=== PATIENT | female | born 1950 | race Caucasian/White ===

== ENCOUNTER → 2017-03-28 | Outpatient (CLI) | payer BC ==
[~2017-03-28] MED LIST: CALC-214 PO; IBUP-103 PO; MULT-506 PO; OMEGCAP2 PO; POLYSOL4 OP; RIZA10TA18 PO
--- NOTE | 2017-03-29 13:52 | MAMMOGRAPHY REPORT ---
BILATERAL DIGITAL SCREENING MAMMOGRAM TOMOSYNTHESIS WITH CAD: 03/28/2017 CLINICAL HISTORY: Routine screening. Patient has no complaints. TECHNIQUE: Breast tomosynthesis in addition to standard 2D mammography was performed. Current study was also evaluated with a Computer Aided Detection (CAD) system. COMPARISON: Comparison is made to exams dated: 03/27/2016 mammogram, 03/24/2015 mammogram, 04/30/2012 m ammogram, 04/25/2011 mammogram, 04/18/2010 mammogram, and 04/12/2009 mammogram - [facility]. BREAST COMPOSITION: The tissue of both breasts is heterogeneously dense, which may obscure small mas ses. FINDINGS: There is a newly visualized partially circumscribed and lobulated 12 mm mass in the approx imate 8:00 posterior right breast, for which additional targeted ultrasound and possible additional m ammographic views are recommended. 2 nodular asymmetries in the lateral right breast posteriorly, wi thin the retroglandular fat appears stable dating back to at least 2011, therefore most likely benign . There are other scattered benign coarse and vascular calcifications bilaterally. No other suspicious mass, architectural distortion or cluster of suspicious microcalcifications is seen. IMPRESSION: ACR BI-RADS CATEGORY 0: INCOMPLETE EVALUATION: NEED ADDITIONAL IMAGING EVALUATION The newly visualized, partially circumscribed and lobulated 12 mm mass in the lower outer posterior r ight breast needs additional evaluation. The patient will be called to schedule an appointment. Approximately 10% of breast cancers are not detected with mammography. A negative mammographic report should not delay biopsy if a clinically suggestive mass is present. Nadeen Finney M.D. ay/:03/28/2017 16:06:14 Flue Cleaner: Nuria NIXON(R)(M), [facility] letter sent: Addl Imaging 0 BI-RADS Code: ACR BI-RADS Category 0: Incomplete Evaluation: Need Additional Imaging Evaluation
== END ==
LOC: C.MAMM 07:56
PROVIDERS: ATTEND Physician Assistant
DX: Z12.31 Encounter for screening mammogram for malignant neoplasm of breast (principal)

== ENCOUNTER → 2017-04-06 | Outpatient (CLI) | payer BC ==
--- NOTE | 2017-04-06 14:13 | MAMMOGRAPHY REPORT ---
ULTRASOUND OF RIGHT BREAST: 04/06/2017 CLINICAL HISTORY: Callback from screening mammogram for right breast mass. COMPARISON: Comparison is made to exams dated: 03/28/2017 mammogram, 03/27/2016 mammogram, 03/24/2015 m ammogram, 04/30/2012 mammogram, 04/25/2011 mammogram, and 04/18/2010 mammogram - [facility]. TECHNIQUE: Real-time targeted ultrasound of the right breast was performed. FINDINGS: Real-time, high-resolution targeted ultrasound was performed of the right breast in the re gion of the 12 mm mammographic mass seen on the recent screening mammogram. In the right breast at 8 :00, 5 cm from the nipple, there is a lobulated hypoechoic solid-appearing 9 x 12 x 6 mm mass. This corresponds with the new mammographic mass and is indeterminant. Recommend ultrasound-guided core ne edle biopsy for further evaluation. In the right breast at 8:00, approximate 6 cm from the nipple, t here is an oval hypoechoic solid-appearing 6 x 4 x 3 mm mass. This mass is also indeterminate and ul trasound-guided core needle biopsy is recommended for further evaluation. IMPRESSION: ACR BI-RADS CATEGORY 4: SUSPICIOUS - FOLLOW-UP RECOMMENDED 1. Hypoechoic 12 mm mass in the right breast 8:00, 5 cm from nipple, which corresponds with the mamm ographic mass. The mass is indeterminant and ultrasound guided core needle biopsy is recommended for further evaluation. 2. Smaller hypoechoic 6 mm mass in the right breast at 8:00, 6 cm from the nipple on ultrasound. Th is mass is also indeterminate and ultrasound-guided core needle biopsy is recommended for further pinky luation (45 minute time slot). A phone call was made to the physician's office to confirm faxed results were received. The patient was verbally notified of the results. She tentatively scheduled the biopsies before leaving the depa rtment. Jojo Wilson M.D. /:04/06/2017 09:15:51 Telephone Clerks Supervisor: Jojo Wilson MD, [facility] letter sent: Abnormal 4/5 BI-RADS Code: ACR BI-RADS Category 4: Suspicious
== END | disposition home or self-care (01) ==
LOC: C.MAMM 08:45
PROVIDERS: ATTEND Physician Assistant
DX: N63.10 Unspecified lump in the right breast, unspecified quadrant (principal)

== ENCOUNTER → 2017-04-13 | Outpatient (CLI) | payer BC ==
--- NOTE | 2017-04-13 11:19 | Discharge Instructions ---
Discharge Instructions Procedure Procedure Date: Apr 13, 2017. Reason for visit: Right Masses X2. Discharge Discharge Date: Apr 13, 2017. Discharge Diagnosis: status post breast biopsy Instructions Activity Recommendations: Additional Limitations (see below) Return to School/Work: no limitations Recommended Home Diet: No Limitations Provider Instructions: ACTIVITY RECOMMENDATIONS: * No lifting, pushing, pulling or exercising the affected side for three days. RETURN TO SCHOOL/WORK: * You may return to work/school after the procedure, but do not perform any strenuous activities for 24 to 48 hours. MEDICATIONS: * Tylenol (two 325 mg) every four to six hours if needed for mild pain (if not allergic to Tylenol). DIET: * Resume previous diet. SPECIAL CARE INSTRUCTIONS: * Keep biopsy site dry for 24 hours. May shower after 24 hours, but do not soak (bathe) incision. * May remove Tegaderm (plastic patch) tomorrow AFTER showering. * Leave the steri-strips on for one week. Allow the steri-strips to fall off by themselves. If not off after one week, you may remove them. You may place a Bandaid crosswise over the strips, if desired. * Apply ice 10 minutes on and 10 minutes off as needed. * Wear a bra at bedtime to sleep more comfortably for 2-3 days. * Your referring physician should have the results after approximately 5 to 7 business days. * Call for unusual bleeding, fever, drainage, etc or if you have any questions call during normal business hours or after hours call Dr Wilson, . FOLLOW UP VISIT: Follow-up with Referring Physician as scheduled. Allergies Coded Allergies: Ciprofloxacin (Verified Allergy, Unknown, NAUSEA, 06/02/16) Codeine (Verified Allergy, Unknown, RASH NAUSEA, 06/02/16) Penicillins (Verified Allergy, Unknown, HIVES, 06/02/16) Sulfa Antibiotics (Verified Allergy, Unknown, RASH NAUSEA, 06/02/16) Morphine and Related (Unverified Adverse Reaction, Unknown, NAUSEA, ) PER PCP RECORDS Catracho Hirsch Recommendations: Call your doctor if: * Temperature above 101 degrees * Pain not relieved by pain medicine ordered * There is increased drainage or redness from any incision * You have any unanswered questions or concerns. Your Doctors Instructions noted above were prepared by provider Jojo Wilson. Patient Signature Section: Patient Instructions Signature Page Rose Delaney Patient (or Guardian) Signature/Date: I have read and understand the instructions given to me by my caregivers. Caregiver/RN/Doctor Signature/Date: The above-named patient and/or guardian has received patient instructions on this date. + Original Patient Signature Page (only) stays with chart. Please make copy for patient.
--- NOTE | 2017-04-13 13:41 | MAMMOGRAPHY REPORT ---
ULTRASOUND GUIDED BIOPSY RIGHT BREAST: 04/13/2017 CLINICAL HISTORY: Right 8:00 breast mass, 6 cm from the nipple. PATIENT CONSENT: The procedure, risks and benefits were discussed with the patient and informed writt en consent was obtained. A timeout was performed immediately prior to the procedure. PROCEDURE DESCRIPTION: With ultrasound guidance, aseptic technique, and lidocaine as the local anesth etic (1% lidocaine without epinephrine), the mass of concern in the right 8:00 breast, 6 cm from the nipple (mass "B") was sampled 4 times with a 14-gauge Achieve biopsy needle. Immediately thereafter , with ultrasound guidance, aseptic technique, and lidocaine as the local anesthetic, a metallic loca lizer clip was placed centrally in the mass. Direct pressure was applied to the site immediately pos t procedure and hemostasis was achieved. Postprocedure unilateral mammograms were performed to confi rm placement of the clip in the expected location of the breast mass. The patient tolerated the proc edure without complication. She was given wound care instructions. The specimens were sent to ismael dominguez for analysis. COMPARISON: Comparison is made to exams dated: 04/13/2017 mammogram, 04/13/2017 ultrasound biopsy, 1 ultrasound, 03/28/2017 mammogram, 03/27/2016 mammogram, and 03/24/2015 mammogram - [facility]. IMPRESSION: ULTRASOUND GUIDED BIOPSY Ultrasound guided core needle biopsy of the right 8:00 breast mass, 6 cm from the nipple (mass B), wi th clip placement. The patient will receive pathology results from her referring provider. Jojo Wilson M.D. ah/:04/13/2017 11:40:40 Attending Technologist: Sarah NIXON(R)(M), [facility] Machinist Helper: Jojo Wilson MD, [facility]
--- NOTE | 2017-04-13 13:41 | MAMMOGRAPHY REPORT ---
THIS REPORT HAS BEEN AMENDED. ULTRASOUND GUIDED BIOPSY RIGHT BREAST: 04/13/2017 CLINICAL HISTORY: Right 8:00 breast mass, 5 cm from the nipple. PATIENT CONSENT: The procedure, risks and benefits were discussed with the patient and informed writt en consent was obtained. A timeout was performed immediately prior to the procedure. PROCEDURE DESCRIPTION: With ultrasound guidance, aseptic technique, and lidocaine as the local anesth etic (1% lidocaine without epinephrine), the mass of concern in the right 8:00 breast, 5 cm from the nipple (mass "A") was sampled 4 times with a 14-gauge Achieve biopsy needle. Immediately thereafter , with ultrasound guidance, aseptic technique, and lidocaine as the local anesthetic, a metallic loca lizer ribbon-shaped clip was placed centrally in the mass. Direct pressure was applied to the site i mmediately post procedure and hemostasis was achieved. Postprocedure unilateral mammograms were perf ormed to confirm placement of the clip in the expected location of the breast mass. The patient hernandez rated the procedure without complication. She was given wound care instructions. The specimens were sent to pathology for analysis. COMPARISON: Comparison is made to exams dated: 04/06/2017 ultrasound, 03/28/2017 mammogram, 03/27/2016 mammogram, 03/24/2015 mammogram, 04/30/2012 mammogram, and 04/25/2011 mammogram - [facility]. IMPRESSION: ULTRASOUND GUIDED BIOPSY Ultrasound guided core needle biopsy of the right 8:00 breast mass, 5 cm from the nipple (mass A), wi th clip placement. The patient will receive pathology results from her referring provider. Jojo Wilson M.D. ah/:04/13/2017 11:38:56 Attending Technologist: Sarah NIXON(Hannah)(M), [facility] Channeling Machine Operator: Jojo Wilson MD, [facility] AMENDMENT: 04/18/2017 Jojo Wilson M.D. Pathology from ultrasound-guided biopsies of 2 right breast masses was reviewed on 04/18/2017. Patho logy of both right 8:00 breast masses yielded myoepithelial cell and tubular proliferation, suggestiv e of adenomyoepitheliomas. The pathology is concordant with the imaging appearance. Given the patho logy, surgical excision of both masses is recommended.
--- NOTE | 2017-04-13 13:44 | MAMMOGRAPHY REPORT ---
UNILATERAL RIGHT DIGITAL DIAGNOSTIC MAMMOGRAM TOMOSYNTHESIS: 04/13/2017 CLINICAL HISTORY: Status post right breast biopsies 2. TECHNIQUE: Breast tomosynthesis in addition to standard 2D mammography was performed. Postprocedura l right CC and LM tomosynthesis images including C views were obtained. COMPARISON: Comparison is made to exams dated: 04/06/2017 ultrasound, 03/28/2017 mammogram, 03/27/2016 mammogram, 03/24/2015 mammogram, 04/30/2012 mammogram, and 04/25/2011 mammogram - [facility]. BREAST COMPOSITION: The tissue of the right breast is heterogeneously dense, which may obscure small masses. FINDINGS: A new ribbon-shaped biopsy marker clip is seen at the site of the biopsied mass in the rig ht 8:00 breast, 5 cm from the nipple. A new wing-shaped biopsy marker clip is seen at the site of th e biopsied mass in the right 8:00 breast, 6 cm from the nipple. The wing clip is only visualized on the cc view and could not be visualized on the lateral view due to the far posterior location. The 2 clips are approximately 12 mm apart on the cc view. No significant postbiopsy hematoma is seen. IMPRESSION: POST PROCEDURE IMAGING FOR MARKER PLACEMENT New biopsy marker clips status post right breast ultrasound-guided biopsy 2. Pathology results are pending. Approximately 10% of breast cancers are not detected with mammography. A negative mammographic report should not delay biopsy if a clinically suggestive mass is present. Jojo Wilson M.D. ah/:04/13/2017 11:37:06 Dial Equipment Engineer: Sarah NIXON(Hannah)(Renny), [facility] BI-RADS Code: Post Procedure Imaging For Marker Placement
== END | disposition home or self-care (01) ==
LOC: C.MAMM 10:24
PROVIDERS: ATTEND Physician Assistant
DX: N63.0 Unspecified lump in unspecified breast (principal)

== ENCOUNTER → 2017-08-20 | Day surgery (SDC) | payer OTHER ==
[2017-07-24 13:36] VITALS: Ht 157.5 cm; Wt 60.0 kg
[~2017-08-20] VITALS: Ht 157.5 cm; Wt 60.0 kg
[~2017-08-20] MED LIST changes: +ACETAMINOPHEN 325 MG TAB PO PRN; +ATROPINE SULFATE 0.1 MG/ML 5ML SYR IV PRN; +ATROPINE SULFATE 1% OP OINT PER APPLICATION CHARGE ONE; +BUPIVACAINE HCL 0.75% 10 ML AMP/VIAL ONE; -CALC-214 PO; +CEFAZOLIN SOD 1 GM VIAL ONE; +CHOL200010 PO; +DEXAMETHASONE SOD INJ 4 MG/ML VIAL ONE; +EpHEDrine SULFATE INJ 50 MG/ML AMP IV PRN; +EpINEphrine INJ 1MG/ML AMP 1 MG/ML AMP ONE; +FENTANYL CITRATE INJ 50 MCG/1 ML 2 ML VIAL IV PRN; +FENTANYL CITRATE INJ 50 MCG/1 ML 2 ML VIAL ONE; +HYALURONIDASE HUMAN 150 UNIT/ML INJ ONE; +INDOCYANINE GREEN 25 MG/10 ML ONE; +LACTATED RINGER'S 1000ML 500 ML IV SCH; +LIDOCAINE HCL 2% 2 ML VIAL (20MG/ML) ONE; +MIDAZOLAM HCL 1 MG/ML 2ML VIAL ONE; +NEOMYCIN/POLYMYX/DEXAMETH OP OINT PER APP CHARGE ONE; -OMEGCAP2 PO; +ONDANSETRON INJ 2 MG/ML 2 ML VIAL IV PRN; +PHENYLEPHRINE HCL 10% OP SOLN PER DROP CHARGE ONE; +POVIDONE-IODINE OP SOLN (SURGERY CNTR CHARGING ONLY) ONE; +PROPARACAINE 0.5% OP SOLN PER DROP CHARGE OPL SCH; +PROPOFOL IV EMULSION 10 MG/ML 20 ML VIAL IV ONE; +TIMOLOL MALEATE 0.5% OP SOLN PER DROP CHARGE ONE; +TRIAMCINOLONE ACETONIDE OPHTH 40 MG/ML VIAL STERILE IO ONE; +VANCOMYCIN HCL 1000MG/20ML VIAL ONE
[2017-08-20] MEDS: PHENYLEPHRINE HCL 2.5% OP SOLN PER DROP CHARGE OPL SCH ×2 (06:39→06:44)
[2017-08-20] MEDS: TROPICAMIDE 1% OP SOLN PER DROP CHARGE OPL SCH ×2 (06:40→06:45)
--- NOTE | 2017-08-20 06:55 | History & Physical Bridge - SC ---
H&P Re-Evaluation Bridge Note: Pt has macular pucker left eye and is having vitrectomy left eye. I have examined the patient, reviewed the History & Physical and in the interval since the performance of the History & Physical I have noted the following changes of clinical significance: No changes noted
--- NOTE | 2017-08-20 08:05 | [facility] Operative Report ---
Operative Report Operative Date Aug 20, 2017. Pre-Operative Diagnosis Left eye epiretinal membrane Post-Operative Diagnosis Same as pre-op Procedure(s) Performed Left Eye 23 Gauge Vitrectomy, Membrane Peel and Fluid Air Exchange Surgeon Civil Technician Surgeon(s) None Estimated Blood Loss Zero Specimens None Anesthesia Type MAC I attest to the content of the Intraoperative Record and any orders documented therein. Any exceptions are noted below.
--- NOTE | 2017-08-20 08:07 | [facility] Operative Report ---
Operative Report Date of Service Aug 20, 2017. Operative Report PREOPERATIVE DIAGNOSIS: Epiretinal membrane with inner lamellar hole configuration left eye. ICD10: H35.372 POSTOPERATIVE DIAGNOSIS: same. PROCEDURE: 1. Pars plana vitrectomy, 23 gauge. 2. Membrane peeling of the internal limiting membrane and overlying epiretinal membrane. 3. Fluid air exchange. All to the left eye. CPT CODE: 15916 SURGEON: Artemio Escamilla D.O. COMPLICATIONS: None. ESTIMATED BLOOD LOSS: None. SPECIMENS: None. ANESTHESIA: Retrobulbar block and MAC. INDICATIONS FOR PROCEDURE: The patient has an epiretinal membrane that is visually significant. Vitrectomy surgery is indicated to decrease risk of vision loss and potentially improve vision. CONSENT: The risks, benefits and alternatives were discussed with the patient including but not limited to decreased visual acuity, failure to achieve desired results, loss of the eye, infection, pain, glaucoma, lens changes, retinal tears, retinal detachment, the need for more procedures, drooping of the eyelid, blindness, and double vision. The patient is aware of risks and consents to the surgery. Consent is signed and on the chart. OPERATION AND FINDINGS: The patient was brought to the operating room where the patient was identified by name, date, and medical record number. The surgical site was confirmed with the informed written consent. The patient was sedated by the anesthesiology team after which a 50:50 mixture of 2% lidocaine and 0.75% bupivacaine with hyaluronidase was administered in a standard retrobulbar fashion. A total of 4 ml was administered without difficulty. The patient was then prepped and draped in the usual sterile manner for retinal surgery. A wire lid speculum was placed and an Daniel 23-gauge trocar cannula system was employed. The inferior temporal trocar cannula was first placed in an angled fashion 3.75mm posterior to the surgical limbus and the infusion cannula was inserted into this cannula after which the intravitreal position was verified prior to turning the infusion on. Two more trocar cannulas were then inserted in an angled fashion, one in the superior temporal, and one in the superior nasal quadrant both 3.75mm posterior to the surgical limbus. A light pipe and vitrector were then introduced into the eye and the BIOM wide angle viewing system was brought into place. Standard core vitrectomy was performed the vitreous was insured to be totally detached from the posterior pole with the aid of the vitrector. Next 0.05ml of indocyanine green was placed over the macular surface to stain the internal limiting membrane. This was washed from the eye after 10 seconds. At this point a flat contact lens was placed on the surface of the eye and a flex scraper and ILM forceps were used to gently peel the internal limiting membrane and overlying epiretinal membrane off of the macular surface without difficulty. At this point scleral depression was performed for 360 degrees and no retinal tears or detachments were noted. A fluid air exchange was performed due the inner lamellar hole configuration. The trocar cannulas were then removed and found to be air tight. The intraocular pressure was found to be within normal limits by palpation and subconjunctival injections of vancomycin and dexamethasone were administered inferiorly and superiorly. The wire lid speculum was removed. Maxitrol was applied to the surface of the eye. A light patch and shield were taped over the surface of the eye and the patient left the Operating Room in stable condition having tolerated the procedure well. DISPOSITION: The patient has an appointment the following morning in the Ophthalmology Clinic. The patient is to call immediately if there are any problems overnight. I attest to the content of the Intraoperative Record and any orders documented therein. Any exceptions are noted below.
--- NOTE | 2017-08-20 08:09 | Discharge Instructions-SurgCtr ---
Discharge Instructions Date of Service Aug 20, 2017. Visit Reason for Visit: Left Eye Epiretinal Membrane Discharge Discharge Diagnosis / Problem: same Discharge Goals Goal(s): Improve function Activity Recommendations Activity Limitations: per Instructions/Follow-up section Anesthesia . Post Anesthesia Instructions: If you have had General Anesthesia or IV Sedation: * Do not drive today. * Resume driving when surgeon permits. * Do not make important decisions or sign legal documents today. * Call surgeon for: 1. Temperature elevations greater than 101 degrees F. 2. Uncontrollable pain. 3. Excessive bleeding. 4. Persistent nausea and vomiting. 5. Medication intolerance (nausea, vomiting or rash). * For nausea and vomiting use only clear liquids such as: tea, soda, bouillon until nausea subsides, then gradually increase diet as tolerated. * If you have any concerns or questions, call your surgeon's office. If physician is unavailable and it is an emergency, call 911 or go to the nearest emergency room. . Instructions / Follow-Up Instructions / Follow-Up * May take Tylenol if needed for discomfort. * Do NOT lay flat on back and position head as follows: Face foward chin down as much as possible. Sleep on either side. * Do NOT remove green bracelet until instructed to do so by your surgeon and follow these precautions: * No air travel * No travel above 2500 feet * No nitrous oxide (N2O). * Do NOT remove eye shield. * NO straining, heavy lifting (>15 pounds) or bending below waist. * Avoid getting water or soap directly into operative eye. * Do NOT rub eye. If you experience increasing eye pain not relieved by medication, please contact us immediately at [phone]. If you are unable to reach someone at the above number, call [phone] and ask to speak with the EYE DOCTOR PRINCIPAL ASSOCIATE. Inform them that you are a Dr. Escamilla patient who had recent surgery. Diet Recommendations Home Diet: resume previous diet Procedures Procedures Performed: Left Eye 23 Gauge Vitrectomy, Membrane Peel and Fluid Air Exchange Pending Studies Studies pending at discharge: no Medical Emergencies . Who to Call and When: Medical Emergencies: If at any time you feel your situation is an emergency, please call 911 immediately. . Non-Emergent Contact Non-Emergency issues call your: Blood Bank Coordinator . . "Provider Documentation" section prepared by Artemio Escamilla. .
[2017-08-20 08:39] VITALS: BP 138/86; PULSE 66; O2SAT 98
--- NOTE | 2017-08-20 08:53 | Anesthesia Progress Nt - [facility] ---
Anesthesia Post Op Note Date & Time Aug 20, 2017 at 08:53 Vital Signs Pain Intensity: 0 Vital Signs Past 12 Hours Date Time Temp Pulse Resp B/P (MAP) Pulse Ox O2 Delivery O2 Flow Rate FiO2 08/20/17 08:39 66 16 138/86 (103) 98 Room Air 08/20/17 08:10 36.5 60 16 126/82 (97) 97 Room Air 08/20/17 06:30 36.9 75 22 120/83 (95) 100 Room Air Notes Mental Status: alert / awake / arousable, participated in evaluation Pt Amnestic to Procedure: Yes Nausea / Vomiting: adequately controlled Pain: adequately controlled Airway Patency, RR, SpO2: stable & adequate BP & HR: stable & adequate Hydration State: stable & adequate Anesthetic Complications: no major complications apparent
== END | disposition home or self-care (01) ==
LOC: X.SURG 06:13
PROVIDERS: ATTEND Ophthalmology
DX: H35.372 Puckering of macula, left eye (principal); M19.90 Unspecified osteoarthritis, unspecified site; Z90.89 Acquired absence of other organs; Z98.890 Other specified postprocedural states; Z79.899 Other long term (current) drug therapy; Z79.82 Long term (current) use of aspirin; Z98.818 Other dental procedure status; Z85.828 Personal history of other malignant neoplasm of skin; Z88.2 Allergy status to sulfonamides; Z88.0 Allergy status to penicillin; Z88.6 Allergy status to analgesic agent

== ENCOUNTER → 2018-02-05 | Outpatient (CLI) | payer OTHER ==
[~2018-02-05] MED LIST changes: -ACETAMINOPHEN 325 MG TAB PO PRN; -ATROPINE SULFATE 0.1 MG/ML 5ML SYR IV PRN; -ATROPINE SULFATE 1% OP OINT PER APPLICATION CHARGE ONE; -BUPIVACAINE HCL 0.75% 10 ML AMP/VIAL ONE; -CEFAZOLIN SOD 1 GM VIAL ONE; -DEXAMETHASONE SOD INJ 4 MG/ML VIAL ONE; -EpHEDrine SULFATE INJ 50 MG/ML AMP IV PRN; -EpINEphrine INJ 1MG/ML AMP 1 MG/ML AMP ONE; -FENTANYL CITRATE INJ 50 MCG/1 ML 2 ML VIAL IV PRN; -FENTANYL CITRATE INJ 50 MCG/1 ML 2 ML VIAL ONE; -HYALURONIDASE HUMAN 150 UNIT/ML INJ ONE; -INDOCYANINE GREEN 25 MG/10 ML ONE; -LACTATED RINGER'S 1000ML 500 ML IV SCH; -LIDOCAINE HCL 2% 2 ML VIAL (20MG/ML) ONE; -MIDAZOLAM HCL 1 MG/ML 2ML VIAL ONE; -NEOMYCIN/POLYMYX/DEXAMETH OP OINT PER APP CHARGE ONE; -ONDANSETRON INJ 2 MG/ML 2 ML VIAL IV PRN; -PHENYLEPHRINE HCL 10% OP SOLN PER DROP CHARGE ONE; -POVIDONE-IODINE OP SOLN (SURGERY CNTR CHARGING ONLY) ONE; -PROPARACAINE 0.5% OP SOLN PER DROP CHARGE OPL SCH; -PROPOFOL IV EMULSION 10 MG/ML 20 ML VIAL IV ONE; -TIMOLOL MALEATE 0.5% OP SOLN PER DROP CHARGE ONE; -TRIAMCINOLONE ACETONIDE OPHTH 40 MG/ML VIAL STERILE IO ONE; -VANCOMYCIN HCL 1000MG/20ML VIAL ONE
--- NOTE | 2018-02-05 11:52 | DIAGNOSTIC IMAGING REPORT ---
MRI OF THE LEFT HIP WITHOUT IV CONTRAST CLINICAL HISTORY: Left hip pain and soreness. Lumbar radiculopathy. COMPARISON STUDY: Pelvic radiograph dated 06/04/2017. TECHNIQUE: MRI of the left hip is performed utilizing various T1 and T2-weighted sequences in the axial and coronal planes. IV contrast was not administered for this examination. FINDINGS: There is no evidence of fracture involving the hips or bony pelvis. Evaluation of the right hip is degraded by susceptibility artifact from a right hip arthroplasty. There is no evidence of osteonecrosis involving the left femoral head. There is mild to moderate osteoarthritic change present in the left hip, with marrow edema in the acetabulum and small foci of degenerative cyst formation within the acetabular roof. There is no hip joint effusion. There is evidence of trochanteric bursitis bilaterally, right greater than left. The origin of the hamstrings tendons appears intact. The regional musculature is normal in bulk and signal intensity. The visualized pelvic viscera is grossly unremarkable but incompletely assessed. IMPRESSION: 1. No acute bony abnormality is identified. 2. There is mild to moderate osteoarthritic change involving the left hip as above, greatest involving the acetabulum. 3. There is evidence of bilateral trochanteric bursitis, right greater than left. Dictated: 02/05/2018 11:04 AM Transcribed: 02/05/2018 11:52 AM [facility] Electronically signed by: Kendrick Mcdaniel M.D. 02/05/2018 12:17 PM Dictated Date/Time: 02/05/2018 11:04 AM
== END | disposition home or self-care (01) ==
LOC: C.MRIBC 09:44
PROVIDERS: ATTEND Orthopaedic Surgery
DX: M54.16 Radiculopathy, lumbar region (principal); M25.552 Pain in left hip

== ENCOUNTER 2023-06-06 07:17 | Observation (INO) ==
--- NOTE | 2023-05-14 11:10 | PAT Medication Instructions ---
Medication Instructions Date of Service May 14, 2023 Home Medications Medication Instructions Recorded clindamycin HCl 300 mg capsule 300 mg PO ONCE PRN prophylaxis #2 12/27/22 caps ibuprofen 200 mg tablet 200 - 600 mg PO QID PRN Pain peg 400-propylene glycol 0.4 %-0.3 % eye drops (Systane (propylene glycol)) 1 drp ophthalmic (eye) BID PRN Dry Eye(S) rizatriptan 10 mg tablet (Maxalt) 1 tab PO UD PRN Migraine Headache clindamycin HCl 300 mg capsule 300 mg PO ONCE PRN prophylaxis Herbal Powder 1 tsp PO DAILY pantoprazole 20 mg tablet,delayed release (Protonix) 20 mg PO DAILY PRN Acid Reflux Continue as directed clindamycin HCl 300 mg capsule 300 mg PO ONCE PRN prophylaxis (if needed) ASK your surgeon for instructions ibuprofen 200 mg tablet 200 - 600 mg PO QID PRN Pain STOP taking 2 weeks before surgery Herbal Powder 1 tsp PO DAILY Take morning of surgery With a small sip of water, OTHERWISE NOTHING TO EAT OR DRINK AFTER MIDNIGHT: peg 400-propylene glycol 0.4 %-0.3 % eye drops (Systane (propylene glycol)) 1 drp ophthalmic (eye) BID PRN Dry Eye(S) (if needed) rizatriptan 10 mg tablet (Maxalt) 1 tab PO UD PRN Migraine Headache (if needed) pantoprazole 20 mg tablet,delayed release (Protonix) 20 mg PO DAILY PRN Acid Reflux (if needed) Take evening before surgery peg 400-propylene glycol 0.4 %-0.3 % eye drops (Systane (propylene glycol)) 1 drp ophthalmic (eye) BID PRN Dry Eye(S) (if needed) rizatriptan 10 mg tablet (Maxalt) 1 tab PO UD PRN Migraine Headache (if needed) pantoprazole 20 mg tablet,delayed release (Protonix) 20 mg PO DAILY PRN Acid Reflux (if needed) Other Notes If you have any questions please call us at [phone] or [phone] or [phone] or [phone]
--- NOTE | 2023-05-14 11:19 | Anesthesiology Consultation ---
Date of Service May 14, 2023 Assessment & Plan (1) Encounter for pre-operative examination: Chart Review Chart Review: Acceptable Risk for Surgery and Patient seen in Pre Admission Testing Pt currently scheduled as 23 hours observation. If surgeon decides to change patient to Same Day Joint, patient would be acceptable risk for ROLANDO, pending patient is motivated, has good support and surgeon's office completes [facility] Program preop requirements. Per PAT appt on 05/14/23, no recent illness/disease exposures, illness related symptoms, or recent illness/disease positive tests. Will leave to surgeon's discretion if preop Covid testing needed Teaching & Discussion Pre-Anesthesia Teaching/Discussion Notes: Instructed NPO after midnight before surgery,except medications with 15 cc of water. Medication instructions provided according to the PAT guidelines. History Surgery Operation Date: 06/06/23 07:00 Proposed Procedures p Left Anterior Total Hip Arthroplasty - Eddie Espinosa, Height/Weight Height: 5 ft 2 in Weight: 52.9 kg Allergies Allergy/AdvReac Type Severity Reaction Status Date / Time cat dander Allergy Intermediate water Verified 05/14/23 11:04 eyes, itchy throat dog dander Allergy Intermediate water Verified 05/14/23 11:04 eyes, itchy throat Penicillins Allergy Intermediate HIVES Verified 05/14/23 11:04 spinach Allergy Intermediate scratchy Verified 05/14/23 11:04 throat codeine Allergy Mild RASH NAUSEA Verified 05/14/23 11:04 pollen extracts Allergy Mild eyes water Verified 05/14/23 11:04 Sulfa (Sulfonamide Allergy Mild RASH NAUSEA Verified 05/14/23 11:04 Antibiotics) Cipro Allergy Unknown NAUSEA Verified 08/20/17 06:29 morphine AdvReac Intermediate NAUSEA Verified 04/01/18 11:02 ciprofloxacin AdvReac Mild NAUSEA Verified 05/14/23 11:04 Medications Home Medications Medication Instructions Recorded Confirmed Last Taken ibuprofen 200 mg tablet 200 - 600 mg PO QID PRN Pain 03/20/18 05/14/23 Unknown peg 400-propylene glycol 0.4 %-0.3 1 drp ophthalmic (eye) BID PRN Dry 03/20/18 05/14/23 Unknown % eye drops (Systane (propylene Eye(S) glycol)) rizatriptan 10 mg tablet (Maxalt) 1 tab PO UD PRN Migraine Headache 03/20/18 05/14/23 03/25/18 clindamycin HCl 300 mg capsule 300 mg PO ONCE PRN prophylaxis #2 12/27/22 05/14/23 Unknown caps Herbal Powder 1 tsp PO DAILY 05/14/23 05/14/23 Unknown pantoprazole 20 mg tablet,delayed 20 mg PO DAILY PRN Acid Reflux 05/14/23 05/14/23 Unknown release (Protonix) Past Medical History Medical History History of anemia GERD (gastroesophageal reflux disease) Stable/improving - aggravated by NSAIDs Hx of basal cell carcinoma BCC - s/p excision x 3-4 times Recently had lesion excised from left upper jaw- band aid in place- healing well per patient Elevated cholesterol History of COVID-19 05/2022>"still has fatigue and triggered increased arthritis" Hx gestational diabetes Osteopenia 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 Migraine Exercise / Class Metabolic Activity II 4-5 Yardwork/Stairs/Walk up hill (one flight of stairs - no chest pain or SOB ) Past Family History Family History Other No family history of adverse response to anesthesia Past Surgical History Surgical History (Updated 05/14/23 @ 12:00 by Shagufta Ying PA-C) History of esophagogastroduodenoscopy (EGD) EGD with possible dilation 2017 EGD 2019 History of colonoscopy History of tooth extraction History of tonsillectomy and adenoidectomy History of cataract surgery left H/O eye surgery left>hole retinta repair Status post Mohs surgery Nausea and vomiting after administration of anesthetic agent History of dilatation and curettage History of total hip arthroplasty RT History of lumpectomy of right breast x 2>benign History of ankle surgery right>hardware present Past Anesthesia History No Hx of Anesthesia Complications (with exception to PONV; also remote history of coming out of anesthesia "quickly" (1989 during BTL and dental work)) and Other (FH unknown in regards to anesthesia issues ) History of PONV History of PONV (improved with pre treatment with IV anti nausea medication ) and Hx of Motion Sickness (also prone to vertigo ) Social History Smoking Status: Never smoker Do You Dip or Chew Tobacco: No Hx Alcohol Use: Yes Alcohol type: beer alcohol intake frequency: a few times a week Hx Substance Use: No Review of Systems - Hx of snoring years ago- hx of sleep study several years ago- no ANGIE Patient denies chest pain, shortness of breath, dyspnea on exertion, cough, wheezing, palpitations. No hx of seizures, stroke, MA. No hx of blood clots or blood transfusions Physical Exam Vital Signs VITALS BP 134/83 P 72 TEMP 97.9 SP02 97% RES 16P Constitutional no acute distress ENMT Mouth: no TMJ clicking Thyromental Distance: < 3.5 Finger Breadths (3.0) Mallampati Class: III Permanent implants to the side teeth Neck + limited neck extension (minimal) Respiratory normal respiratory effort; no respiratory distress Auscultation: lungs clear to auscultation bilaterally; no wheezes Cardiovascular Rate/Rhythm: regular rate and regular rhythm Heart Sounds: no murmur Vessels: no carotid bruit Musculoskeletal Spine: no pain with cervical ROM Extremities: extremities normal to inspection Psychiatric Orientation: alert Lab Results Anesthesia Preop Results Results Anesthesia Widget: WBC 7.12 K/ul (4.8-10.8) 05/14/23 Hgb 12.6 g/dl (12.0-16.0) 05/14/23 Hct 37.0 % (37.0-47.0) 05/14/23 Plt 267 K/uL (130-400) 05/14/23 Na 138 mmol/L (136-145) 05/14/23 K 4.0 mmol/L (3.5-5.1) 05/14/23 Cl 104 mmol/L (98-107) 05/14/23 CO2 28 mmol/L (21-32) 05/14/23 BUN 10 mg/dl (6-23) 05/14/23 Creat 0.48 mg/dl (0.6-1.2) L 05/14/23 Glucose Level 125 mg/dl (70-99(Fasting)) H 05/14/23 PT 10.9 Seconds (9.0-12.0) 05/14/23 PTT 27.8 Seconds (21.0-31.0) 05/14/23 INR 1.0 (0.9-1.1) 05/14/23 Blood Type O Positive 05/14/23 Antibody Screen NEGATIVE 05/14/23 Testing Electrocardiogram Date: 05/14/23 Findings: + NSR @ (79bpm ) Low voltage QRS Cannot rule out anterior infarct, age undetermined Nonspecific T wave abnormality When compared to EKG from Apr 17, 2016- no significant change was found per cardio Chest X-Ray Date: 05/14/23 Findings: + NAD FINDINGS: PA and lateral chest radiographs are compared to study dated 04/17/2016. The heart is mildly enlarged. The pulmonary vasculature is noncongested. Chronic interstitial thickening is similar to previous. There is mild bibasilar scarring/atelectasis. The lungs and pleural spaces are otherwise clear. There is no pneumothorax. The skeletal structures are osteopenic. The bony thorax appears intact. Stress Test Date: 07/15/21 Type: exercise (ECHO) Resting EF: 70% Valvular Disease: no significant valvular disease Negative exercise echo and EKG for ischemia at 93% MPHR. No stress-induced chest pain Good functional status achieving 9 minutes on a standard Serg protocol Grade 1 DD.
--- NOTE | 2023-05-31 06:56 | History & Physical Report ---
Date of Service May 31, 2023 Assessment & Plan (1) Hip arthritis: We will proceed with a left anterior total arthroplasty. Postoperatively she will be started on aspirin for DVT prophylaxis and kept overnight in the hospital for postop medical management. She plans to use energy physical therapy upon discharge. History of Present Illness Chief Complaint: Osteoarthritis of the left hip. Primary Care Provider: Kina Mcneill PA-C Rose is a pleasant 72-year-old female who has been dealing with chronic increasing left hip and groin pain. She has a history of a right hip replacement done in the past and has done well with that. Unfortunately, she is really struggling with her left hip. She has been seeing some of my partners. X-rays do show some arthritis. She then had an MRI, which showed advanced osteoarthritis of her left hip. She is having trouble ambulating. She is having trouble walking long distances especially at work. After failing conservative treatment, she has elected to proceed with a left anterior total arthroplasty. Allergies Allergy/AdvReac Type Severity Reaction Status Date / Time cat dander Allergy Intermediate water Verified 05/14/23 11:04 eyes, itchy throat dog dander Allergy Intermediate water Verified 05/14/23 11:04 eyes, itchy throat Penicillins Allergy Intermediate HIVES Verified 05/14/23 11:04 spinach Allergy Intermediate scratchy Verified 05/14/23 11:04 throat codeine Allergy Mild RASH NAUSEA Verified 05/14/23 11:04 pollen extracts Allergy Mild eyes water Verified 05/14/23 11:04 Sulfa (Sulfonamide Allergy Mild RASH NAUSEA Verified 05/14/23 11:04 Antibiotics) Cipro Allergy Unknown NAUSEA Verified 08/20/17 06:29 morphine AdvReac Intermediate NAUSEA Verified 04/01/18 11:02 ciprofloxacin AdvReac Mild NAUSEA Verified 05/14/23 11:04 Home Medications Medication Instructions Recorded Confirmed Type ibuprofen 200 mg tablet 200 - 600 mg PO QID PRN Pain 03/20/18 05/14/23 History peg 400-propylene glycol 0.4 %-0.3 1 drp ophthalmic (eye) BID PRN Dry 03/20/18 05/14/23 History % eye drops (Systane (propylene Eye(S) glycol)) rizatriptan 10 mg tablet (Maxalt) 1 tab PO UD PRN Migraine Headache 03/20/18 05/14/23 History clindamycin HCl 300 mg capsule 300 mg PO ONCE PRN prophylaxis #2 12/27/22 05/14/23 Rx caps Herbal Powder 1 tsp PO DAILY 05/14/23 05/14/23 History pantoprazole 20 mg tablet,delayed 20 mg PO DAILY PRN Acid Reflux 05/14/23 05/14/23 History release (Protonix) Past Med/Surg History Medical History History of anemia GERD (gastroesophageal reflux disease) Stable/improving - aggravated by NSAIDs Hx of basal cell carcinoma BCC - s/p excision x 3-4 times Recently had lesion excised from left upper jaw- band aid in place- healing well per patient Elevated cholesterol History of COVID-19 05/2022>"still has fatigue and triggered increased arthritis" Hx gestational diabetes Osteopenia 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 Migraine Surgical History History of esophagogastroduodenoscopy (EGD) EGD with possible dilation 2017 EGD 2019 History of colonoscopy History of tooth extraction History of tonsillectomy and adenoidectomy History of cataract surgery left H/O eye surgery left>hole retinta repair Status post Mohs surgery Nausea and vomiting after administration of anesthetic agent History of dilatation and curettage History of total hip arthroplasty RT History of lumpectomy of right breast x 2>benign History of ankle surgery right>hardware present Family History Other No family history of adverse response to anesthesia Social History Smoking Status: Never smoker Second Hand Exposure: No; Do You Dip or Chew Tobacco: No; Hx Alcohol Use: Yes Alcohol type: beer Hx Substance Use: No Preferred Language: Hungarian Communication Ability: Effective 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 Physical Exam On physical examination of left hip, she has slightly decreased range of motion. She has pain with forced internal and external rotation. Most of her pain is located in her groin.. Constitutional WD/WN, vitals as above Eyes PERRL, conjunctivae normal, anicteric sclerae ENMT external ear and nose normal, oropharynx normal Neck trachea midline, no thyromegaly Respiratory normal respiratory effort Cardiovascular RRR, no murmur, no edema Gastrointestinal (Abdomen) normal bowel sounds, soft, nontender, no hepatosplenomegaly Psychiatric A+Ox3, euthymic affect Results & Data Results & Data Laboratory Results . Diagnostic Findings X-rays and MRI of the left hip show advanced arthritis with joint space narrowing, osteophyte formation, and [id number] articulation. PG Care Time/CCT Total # of Minutes Spent Total Time Spent with Patient: Total time spent is greater than 50% in coordination of care (as documented) at patient's floor/unit and/or counseling patient: Coding Level of Care Code None Diagnoses Hip arthritis M16.10
[~2023-06-06 07:17] MED LIST changes: +ACETAMINOPHEN 500 MG TAB PO SCH; +BUPIVACAINE 0.5 % 5 MG/1 ML PF 10ML VIAL ONE; -CHOL200010 PO; +FAMOTIDINE 20 MG TAB PO SCH; +GABAPENTIN 300 MG CAP PO SCH; -IBUP-103 PO; +LR 500ML BOLUS, THEN 15ML/HR IV SCH; +LR 60ML/HR IV SCH; -MULT-506 PO; +ORTHO JOINT MIX INFIL SCH; -POLYSOL4 OP; -RIZA10TA18 PO; +TRANEXAMIC ACID 1,000 MG **IV Intra-op IV SCH; +TRANEXAMIC ACID 1,000 MG **IV Pre-op IV SCH; +ceFAZolin 2000MG 2,000 MG/15 ML SYR IV SCH; +dexAMETHasone 4 MG TAB PO SCH
[2023-06-06] MEDS ORDERED: LIDOCAINE 2% 2 ML VIAL/AMP(20MG/ML) INFIL ONE (07:26)
[2023-06-06] MEDS ORDERED: PROPOFOL IV EMULSION 10 MG/ML 20 ML VIAL IV ONE (07:26)
[2023-06-06] MEDS ORDERED: MIDAZOLAM HCL 1 MG/ML 2ML VIAL ONE (07:26)
--- NOTE | 2023-06-06 08:31 | History & Physical Bridge Note ---
Date of Service June 06, 2023 History & Physical Bridge Note I have examined the patient, reviewed the History & Physical and in the interval since the performance of the History & Physical I have noted the following changes of clinical significance: no changes noted
[2023-06-06] MEDS ORDERED: ePHEDrine sulfate 50 MG/ML AMP IV PRN (08:36)
[2023-06-06] MEDS ORDERED: ATROPINE SULFATE 0.1 MG/ML 10ML SYR IV PRN (08:36)
[2023-06-06] MEDS ORDERED: ONDANSETRON INJ 2 MG/ML 2 ML VIAL IV PRN ×2 (08:36→10:57)
[2023-06-06] MEDS ORDERED: fentaNYL citrate PF 100 MCG/2 ML VIAL IV PRN (08:36)
[2023-06-06] MEDS ORDERED: ceFAZolin 2,000 MG/15 ML IV PUSH IV ONE (08:42)
[2023-06-06] MEDS ORDERED: Nursing to Pharmacy Communication SCH (08:45)
[2023-06-06] MEDS ORDERED: ORTHO JOINT ANESTHETIC ONE (08:47)
[2023-06-06] MEDS ORDERED: fentaNYL citrate PF 100 MCG/2 ML VIAL ONE (09:47)
--- OUTSIDE RECORDS SUMMARY | 2023-06-06 10:10 | External Medical Summary | Summary of Care ---
Author Name Unknown Organization [facility] Address [address] [place] [address] Phone [phone] Care Team Providers Care Finish Patcher Name Role Phone Ro Cannon DO Primary Care Provider Reason for Visit * Reason Onset Date Comments Medication Refill 05/31/2023 Encounter Details Date Type Department Care Team (Late st Contact Info) Description 05/31/2023 Refill Family Practice [facility] [address] [facility] [place] [address] Kina Mcneill PA-C [address] [facility] [place] [address] Allergies Active Allergy Reactions Criticality Noted Date Comments Ciprofloxacin Nausea/vomiting 08/21/2017 Morphine And Related 06/28/2009 nauea Penicillins 2000 Hives Sulfa Antibiotics Edema Other 03/12/2012 documented as of this encounter (statuses as of 06/04/2023) Medications Medication Sig Dispensed Refills Start Date End Date Status Fluocinolone Acetonide Scalp 0.01 % External Oil (Gobles-Smoothe/FS Scalp)Indications :Seborrheic dermatitis Apply to ears, armpits, scalp as needed at night 118.28 mL 1 02/13/2022 Active Additional Information Patient not taking.Reported on 04/09/2023 Ketoconazole 2 % External Shampoo (Nizoral)Indicati ons:Seborrheic dermatitis wash scalp a few times weekly 120 mL 1 04/03/2022 Active Additional Information Patient not taking.Reported on 05/07/2023 Clobetasol Propionate 0.05 % External SolutionIndicatio ns:Seborrheic dermatitis apply to scalp after showering as needed 60 mL 2 04/12/2022 Active Clobetasol Propionate 0.05 % External Ointment (Temovate)Indicat ions:Seborrheic dermatitis Apply to itchy rash twice daily (not face) as needed (body); apply to areas unresponsive to betamethasone cream 15 g 1 05/30/2022 Active Cetaphil Moisturizing External Cream Apply daily to dry skin areas especially after bathing/showering 0 05/30/2022 Active Cyclobenzaprine HCl 10 MG Oral Tablet (Flexeril) Take 1 Tablet by mouth at bedtime as needed for Muscle spasms. 10 Tablet 0 06/29/2022 Active Additional Information Patient not taking.Reported on 04/09/2023 diazePAM 5 MG Oral Tablet (Valium)Indicatio ns:Cervicalgia,Sp asm of muscle,Numbness Take 1 Tablet by mouth 2 times a day as needed for Muscle spasms. For neck spasm 4 Tablet 0 07/05/2022 Active Additional Information Patient not taking.Reported on 08/09/2022 Famotidine 20 MG Oral Tablet (Pepcid) Take 1 Tablet by mouth in the morning and 1 Tablet before bedtime. 30 Tablet 0 07/27/2022 Active Additional Information Patient not taking.Reported on 11/29/2022 Ondansetron HCl 4 MG Oral Tablet (Zofran) Take by mouth 1 Tablet every 6 hours as needed for Nausea. 18 Tablet 1 10/13/2022 Active Additional Information Patient not taking.Reported on 04/09/2023 Pantoprazole Sodium 20 MG Oral Tablet Delayed Release (Protonix)Indicat ions:Gastroesopha geal reflux disease with esophagitis without hemorrhage Take 1 Tablet by mouth in the morning. 90 Tablet 3 10/26/2022 Active Additional Information Patient not taking.Reported on 04/09/2023 Betamethasone Dipropionate 0.05 % External Cream (Diprosone) Apply twice daily to flares of eczema rash on trunk and extremities 45 g 3 01/29/2023 Active Rizatriptan Benzoate 10 MG Oral Tablet (Maxalt) Take 1 Tablet by mouth as needed for Migraine. 10 Tablet 5 05/07/2023 Active oxyBUTYnin Chloride ER 5 MG Oral Tablet Extended Release 24 Hour (Ditropan XL) Take 1 Tablet by mouth in the morning. Do not cut, crush or chew. 90 Tablet 3 06/04/2023 Active Cetirizine HCl 5 MG Oral Tablet (Allergy Relief Cetirizine) Take 1 Tablet by mouth in the morning. 90 Tablet 3 06/04/2023 Active Cetirizine HCl 5 MG Oral Tablet (Allergy Relief Cetirizine) Take 1 Tablet by mouth in the morning. 30 Tablet 5 03/07/2023 3 Discontinue d(Refill) oxyBUTYnin Chloride ER 5 MG Oral Tablet Extended Release 24 Hour (Ditropan XL) Take 1 Tablet by mouth in the morning. Do not cut, crush or chew. 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/2016 HX-SKIN MALIGNANCY NEC - BCC R chin 03/2010 Overview: BCC L preauricular 03/2023, BCC R lateral brow 05/2018, BCC R chin 2009 Allergic rhinitis CLASSICAL MIGRAINE WITHOU MENTION OF INTRACTABLE MIGRAINE documented as of this encounter (statuses as of 06/04/2023) Resolved Problems Problem Noted Date Diagnosed Date Resolved Date Abnormal chest x-ray 02/20/2018 018 Preop examination 06/12/2017 02/14/2018 Rotator cuff injury 11/05/2016 02/15/20 18 Strain of left pectoralis mu scle, initial encounter 11/05/2016 04/09/2017 Disorder of bone and cartilage 06/03/2007 01/24/2017 ADVANCE DIRECTIVE INFORMATION 02/21/2005 11/05/2016 Overview: No, Advance Directive brochure given to patient at prior appointment. LUMBAGO 02/14/2018 ABN GLUCOSE-ANTEPARTUM 01/24 documented as of this encounter (statuses as of 06/04/2023) Immunizations Name Administration Dates Next Due COVID-19 mRNA, LNP-s, No Pre serve, 2-Dose Series (Pfizer) 04/16/2021,09/03/2020,08/06/2020 COVID-19, MRNA-LNP, 23-24, P F, 30 MCG/0.3 mL, 12 YRS AND ABOVE, IM (PFIZER-Comirnaty) 03/23/2023 Pneumococcal Conjugate Vacc, 13 Valent (Prevnar) 06/12/2017 Pneumococcal Polysaccharide PPV23 (Pneumovax) 02/18/2019 Rsv Vac., Recomb, Adjuvant, Pf,0.5 Ml (Arexvy) 03/23/2023 Season Influenza, Quad, PF, Adjuvanted, 65+ Yrs, IM (FLUAD) 03/24/2020 Seasonal Influenza, Quadriva lent Hd (Fluzone Hd) 03/06/2023 Seasonal Influenza, Quadriva lent Hd, 65+ Yrs 05/05/2022,03/28/2021 Seasonal Influenza, Quadriva lent, No Preserve, IM 04/11/2018,04/08/2017 Seasonal Influenza, Split, I IV3, With Preserve, Inj 04/09/2019,04/07/2016,03/23/2015,04/13,04/07/2011,03/18/2010,05/14/2009 TD, Preservative Free 07/11/2021 TDAP (age 11 and older)(Adacel) 11/30/2008 Varicella Zoster Vaccine (Adult) 01/24/2017 documented as of this encounter Social History Tobacco Use Types Packs/Day Years Used Date Smoking Tobacco: Never Passive Smoke Exposure: Never Smokeless Tobacco: Never Alcohol Use Standard Drinks/Week Comments Not Currently 0 (1 standard drink = 0.6 oz pur e alcohol) occ AUDIT-C Answer Date Recorded Frequency of Alcohol Consumption Not on file 02/18/2019 Average Number of Drinks Not on file 019 Frequency of Binge Drinking Less than monthly PHQ-2 Answer Date Recorded PHQ Adult Total Score 0 03/23/2021 Hunger Vital Sign Answer Date Recorded Within the past 12 months, y ou worried that your food would run out before you got the money to buy more. Never true 05/06/20 23 Within the past 12 months, t he food you bought just didn't last and you didn't have money to get more. Never true 05/06/2023 Sex and Gender Information Value Date Recorded Sex Assigned at Female 03/23/2021 10:47 AM EDT Gender Identity Female 03/23/2021 10:47 AM EDT Sexual Orientation Straight 03/23/2021 10 :47 AM EDT Job Start Date Occupation Industry Not on file Not on file Not on file documented as of this encounter Miscellaneous Notes * Telephone Encounter - Daljit Anderson DO - 06/04/2023 3:39 PM ESTSigned Prescriptions: Disp Refills oxyBUTYnin Chloride ER 5 MG Oral Tablet Ex*90 Tab*3 Sig: Take 1 Tablet by mouth in the morning. Do not cut, crush or chew.Authorizing Provider: DALJIT ANDERSON Cetirizine HCl 5 MG Oral Tablet (Allergy R*90 Tab*3 Sig: Take 1 Tablet by mouth in the morning.Authorizing Provider: DALJIT ANDERSON * Telephone Encounter - Daljit Anderson DO - 06/04/2023 3:39 PM ESTSigned Prescriptions: Disp Refills oxyBUTYnin Chloride ER 5 MG Oral Tablet Ex*90 Tab*3 Sig: Take 1 Tablet by mouth in the morning. Do not cut, crush or chew. Authorizing Provider: DALJIT ANDERSON Cetirizine HCl 5 MG Oral Tablet (Allergy R*90 Tab*3 Sig: Take 1 Tablet by mouth in the morning. Authorizing Provider: DALJIT ANDERSON * Telephone Encounter - Kellie Castaneda LPN - 06/04/2023 2:19 PM ESTPending Prescriptions: Disp Refills oxyBUTYnin Chloride ER 5 MG Oral Tablet Ex*90 Tab*3 Sig: Take 1 Tablet by mouth in the morning. Do not cut, crush or chew. Cetirizine HCl 5 MG Oral Tablet (Allergy R*90 Tab*3 Sig: Take 1 Tablet by mouth in the morning. * Telephone Encounter - Kellie Castaneda LPN - 06/04/2023 2:19 PM ESTPending Prescriptions: Disp Refills oxyBUTYnin Chloride ER 5 MG Oral Tablet Ex*90 Tab*3 Sig: Take 1 Tablet by mouth in the morning. Do not cut, crush or chew. Cetirizine HCl 5 MG Oral Tablet (Allergy R*90 Tab*3 Sig: Take 1 Tablet by mouth in the morning. * Telephone Encounter - Jeanine Flores, ANGIE - 05/31/2023 1:43 PM EST Did you pend patient's preferred pharmacy and medication before forwarding?yes Pharmacy: [id number] [facility] Pending Prescriptions: Disp Refills oxyBUTYnin Chloride ER 5 MG Oral Tablet E*30 Tab*5 Sig: Take 1 Tablet by mouth in the morning. Do not cut, crush or chew. Cetirizine HCl 5 MG Oral Tablet (Allergy *30 Tab*5 Sig: Take 1 Tablet by mouth in the morning. Last Visit: 05/07/2023 (in office), 12/01/2021 (telemedicine) Next Visit: Visit date not found If no future appointments scheduled, and last appointment is greater than a year ago, please schedule patient for a follow-up appointment Last date the medication was ordered: 03/07/23 & 05/07/23 Is this request for a controlled substance?No Urine Drug Screen:No results found for this or any previous visit. Patient Phone Numbers Labs: Lab Results Component Value Date/Time CREAT 0.54 (A) 12/15/2022 12:00 AM CREAT 0.7 06/12/2018 04:47 PM POTASSIUM 4.0 12/15/2022 12:00 AM POTASSIUM 3.9 06/12/2018 04:47 PM TSH 2.82 12/15/2022 12:00 AM TSH 2.60 03/12/2017 08:29 AM LDLCALC 171 (H) 12/15/2022 12:00 AM LDLCALC 158 (H) 05/22/2016 08:54 AM ALT 26 06/12/2018 04:47 PM HGBA1C 5.7 12/12/2021 12:00 AM HGBA1C 5.7 2000 10:42 AM documented in this encounter Plan of Treatment Upcoming Encounters Date Type Department Care Team (Late st Contact Info) Description 08/09/2023 11:00 AM EST Office Visit Allergy/Immunology [place] [address] [place] [address] Abeba Auguste PA-C [address] [place] [id number] 09/06/2023 10:30 AM EDT Office Visit Gastroenterology, [place] Kirsten Aguirrewn [address] [place] [phone] Rebekah Hemphill PA-C [address] [place] [address] 10/16/2023 9:30 AM EDT Telemedicine Nutrition, Magdy Kilgore [address] [place] [address] Felipa Rivas, RDN [address] [place] [address] 04/16/2024 1:30 PM EDT Office Visit Dermatology, Laureen Tonia Betancourt [address] [place] [address] [place] [address] Juliet Alexander PA-C [address] [place] [address] [place] [phone] Scheduled Procedures Name Priority Associated Diagnoses Date/Ti me COLONOSCOPY FLEXIBLE PROXIMA L DIAGNOSTIC Recall Encounter for screening colonoscopy Health Maintenance Due Date Last Done Comments DXA Scan 1951 Cologuard 11/12/1996 Fecal Occult Blood Test 11/12/1996 Sigmoidoscopy 11/12/1996 Zoster Vaccines (2 of 3) 03/21/2017 01/24/2017 Depression Screening 03/23/2022 03/23/2021, 06/11/2015 (Discussed) Mammogram 04/03/2024 04/03/2023, 04/26, 05/17/2021, Additional history exists Lipid Panel 12/16/2027 12/15/2022, 06/25, 05/22/2016, Additional history exists Colonoscopy 08/15/2029 08/15/2019, 07/27, 04/04/2010 Colorectal Cancer Screening 08/15/2029 DTaP,Tdap,and Td Vaccines (3 - Td or Tdap) 07/11/2031 07/11/2021, 11/30/2008 Pneumococcal Vaccine: 65+ Years Completed 02/18/2019, 06/12/2017 Influenza Vaccine (FLU shot) Completed 05/2023, 05/05/2022, 03/28/2021, Additional history exists COVID-19 Vaccine Completed 03/23/2023, , 09/03/2020, Additional history exists GARDASIL-HPV IMMUNIZATION SERIES Aged Out No longer eligible based on patient's age to complete this topic Hepatitis B Aged Out No longer eligi ble based on patient's age to complete this topic MENINGOCOCCAL (MENACTRA/MENVEO) Aged Out No longer eligible based on patient's age to complete this topic documented as of this encounter Medical Devices Not on filedocumented as of this encounter Care Teams Finish Patcher Relationship Specialty Start Date End Date Ro Cannon DO [address] [place] [address] PCP - General Family Medicine 12/02/16 documented as of this encounter
--- OUTSIDE RECORDS SUMMARY | 2023-06-06 10:10 | External Medical Summary | Summary of Care ---
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 Name Role Phone Ro Cannon DO Primary Care Provider Reason for Visit * Reason Comments Physical-Exam Encounter Details Date Type Department Care Team (Late st Contact Info) Description 05/07/2023 10:20 AM EST Office Visit Family Practice [facility] [address] [facility] [place] [address] Kina Mcneill PA-C [address] [facility] [place] [address] Well adult exam*; Dyslipidemia, goal LDL below 130; Arthritis pain, hip; Urinary frequency Allergies Active Allergy Reactions Criticality Noted Date Comments Ciprofloxacin Nausea/vomiting 08/21/2017 Morphine And Related 06/28/2009 nauea Penicillins 2000 Hives Sulfa Antibiotics Edema Other 03/12/2012 documented as of this encounter (statuses as of 05/23/2023) Medications Medication Sig Dispensed Refills Start Date End Date Status Fluocinolone Acetonide Scalp 0.01 % External Oil ([place]-Smoothe/FS Scalp)Indications :Seborrheic dermatitis Apply to ears, armpits, [...] and extremities 45 g 3 01/29/2023 Active Cetirizine HCl 5 MG Oral Tablet (Allergy Relief Cetirizine) Take 1 Tablet by mouth in the morning. 30 Tablet 5 03/07/2023 Active Rizatriptan Benzoate 10 MG Oral Tablet (Maxalt) Take 1 Tablet by mouth as needed for Migraine. 10 Tablet 5 05/07/2023 Active oxyBUTYnin Chloride ER 5 MG Oral Tablet Extended Release 24 Hour (Ditropan XL) Take 1 Tablet by mouth in the morning. Do not cut, crush or chew. 30 Tablet 5 05/07/2023 Active Rizatriptan Benzoate 10 MG Oral Tablet (Maxalt) Take 1 Tablet (10 mg) by mouth as needed for Migraine. 10 Tablet 5 05/20/2022 3 Discontinue d(Refill) documented as of this encounter (statuses as of 05/23/2023) Active Problems Problem Noted Date Diagnosed Date [...] as of this encounter (statuses as of 05/23/2023) Resolved Problems Problem Noted Date Diagnosed Date [...] as of this encounter (statuses as of 05/23/2023) Immunizations Name Administration Dates Next Due COVID-19 [...] on file documented as of this encounter Last Filed Vital Signs Vital Sign Reading Time Taken Comments Blood Pressure 118/70 05/07/2023 10:12 AM EST Pulse 80 05/07/2023 10:12 AM EST Temperature - - Respiratory Rate 16 05/07/2023 10:12 AM EST Oxygen Saturation 100% 05/07/2023 10:12 AM EST Inhaled Oxygen Concentration - - Weight 54 kg (119 lb) 05/07/2023 10:12 AM EST Height 154.9 cm (5' 1") 05/07/2023 10:12 AM EST Body Mass Index 22.48 05/07/2023 10:12 AM EST documented in this encounter Progress Notes * Kina Mcneill PA-C - 05/07/2023 10:31 AM EST Rose Delaney is a 72 year old female who presents for an annual check-up. Current concerns: Has impending left hip replacement surgery on 06/06/23. Concerns with LDL. Family history of heart disease. Issues with urinary retention. Has to urinate a lot. Drinks a lot. 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/05/2016 Benign neoplasm of colon 04/04/10 polyp--hyperplastic--repeat in 7 yrs GERD (gastroesophageal reflux disease) 12/22/2019 INFORMATION hemorrhage after childbirth/ d and c Lumbago Migraine with aura Past Surgical History: Procedure Laterality Date COLONOSCOPY, DIAGNOSTIC (RECTUM) 08/15/2019 diverticulosis sigmoid colon/recall 10 years/COLONOSCOPY FLEXIBLE PROXIMAL DIAGNOSTIC performed by Macarena Ureña DO at ENDOSCOPY [facility] COLONOSCOPY, REMOVE LESION, W/SNARE 04/04/10 polyp--hyperplastic--repeat in 7 yrs D&C AFTER DELIVERY 2008 DENTAL SURGERY PROCEDURE N[facility] Dental Surgery Procedure DEXA SCAN/BONE MINERAL AXIAL 51 osteopenia DILATION AND CURETTAGE (D&C) D&C EGD, FLEXIBLE, DIAGNOSTIC 05/13/2018 reflux esophagitis/ESOPHAGOGASTRODUODENOSCOPY (EGD), FLEXIBLE, TRANSORAL, DIAGNOSTIC performed by Tera Schwartz MD at ENDOSCOPY [facility] EGD, FLEXIBLE, DIAGNOSTIC 08/15/2019 anisa Grade III reflux esophagitis/biopsies show mild inflammation end of esophagus consistent with acid reflux/ESOPHAGOGASTRODUODENOSCOPY (EGD), FLEXIBLE, TRANSORAL, DIAGNOSTIC performed by Macarena Ureña DO at ENDOSCOPY [facility] EGD, FLEXIBLE, W/BIOPSY [id number] EXC BREAST LESION RADMARK Right 06/13/2017 EXCISION OF BREAST LESION RADIOLOGICAL MARKER performed by Jessica Brantley MD at OR [facility] INFORMATION 12/03/1999 right breast bx - benign [facility] 12/03/1999? not sure of date INFORMATION Right 06/02/2016 06/02/2016 fx right hip - [facility] LIGATE/CUT OVIDUCT(S) MAMMOGRAM - 1 BREAST 12/05/02 birad code 2, yearly mammo appropriate MAMMOGRAM - BILATERAL 08/09/01 birad code 2 MAMMOGRAM - BILATERAL 11/20/02 spot compression views needed of left breast, birad code 0 MAMMOGRAM - BILATERAL 12/05/05 birad 2 yearly MAMMOGRAM BREAST NEEDLE BIOPSY CORE BILATERAL Right 04/13/2017 04/13/2017 right core bx A. right breast 8 o'clock , 5 cm from nipple dx myopithelial cell and tubular porliferation, strongly suggestive of adenomyoepithelioma B. right 8 o'clock , 6 cm from nipple myoepithelial cell and tubular proliferation, strongly suggestive of adenomyoepithelioma MAMMOGRAM DIAGNOSTIC BILATERAL 04/18/2010 BIRAD Cat: 2 Benign Findings 1 yaer screen recommended MAMMOGRAM SCREENING-BILATERAL 04/07/08 stable bilateral calcifications, benign,yearly mammo approp. MISCELLANEOUS ORDER ([facility] ONLY) 12/28/09 fracture of right ankle PAP SCREEN 4.20.06 satisfactory for evaluation, dr enamorado PAP SCREEN 04/07/08 negative findings, Elba Enamorado PAP SCREEN 04/09/2009 wnl REMOVE TONSILS & ADENOIDS, UNDER 12 Tonsillectomy/Adenoids,<12 Y/O VAGINAL DELIVERY ONLY Vaginal Delivery VAGINAL DELIVERY ONLY Vaginal Delivery VITRECTOMY W/ REMOVE OF EPIRETINAL MEMBRANE Left 08/20/2017 23G PPV/MP/Sterile Air for ERM with lamellar hole configuration OS; Dr. Escamilla Current Outpatient Medications Medication Sig Dispense Refill Clobetasol Propionate 0.05 % External Solution apply to scalp after showering as needed 60 mL 2 Rizatriptan Benzoate 10 MG Oral Tablet (Maxalt) Take 1 Tablet (10 mg) by mouth as needed for Migraine. 10 Tablet 5 Clobetasol Propionate 0.05 % External Ointment (Temovate) Apply to itchy rash twice daily (not face) as needed (body); apply to areas unresponsive to betamethasone cream 15 g 1 Cetaphil Moisturizing External Cream Apply daily to dry skin areas especially after bathing/showering Betamethasone Dipropionate 0.05 % External Cream (Diprosone) Apply twice daily to flares of eczema rash on trunk and extremities 45 g 3 Cetirizine HCl 5 MG Oral Tablet (Allergy Relief Cetirizine) Take 1 Tablet by mouth in the morning. 30 Tablet 5 Fluocinolone Acetonide Scalp 0.01 % External Oil ([place]-Smoothe/FS Scalp) Apply to ears, armpits, scalp as needed at night (Patient not taking: Reported on 04/09/2023) 118.28 mL 1 Ketoconazole 2 % External Shampoo (Nizoral) wash scalp a few times weekly (Patient not taking: Reported on 05/07/2023) 120 mL 1 Cyclobenzaprine HCl 10 MG Oral Tablet (Flexeril) Take 1 Tablet by mouth at bedtime as needed for Muscle spasms. (Patient not taking: Reported on 04/09/2023) 10 Tablet 0 diazePAM 5 MG Oral Tablet (Valium) Take 1 Tablet by mouth 2 times a day as needed for Muscle spasms. For neck spasm (Patient not taking: Reported on 08/09/2022) 4 Tablet 0 Famotidine 20 MG Oral Tablet (Pepcid) Take 1 Tablet by mouth in the morning and 1 Tablet before bedtime. (Patient not taking: Reported on 11/29/2022) 30 Tablet 0 Ondansetron HCl 4 MG Oral Tablet (Zofran) Take by mouth 1 Tablet every 6 hours as needed for Nausea. (Patient not taking: Reported on 04/09/2023) 18 Tablet 1 Pantoprazole Sodium 20 MG Oral Tablet Delayed Release (Protonix) Take 1 Tablet by mouth in the morning. (Patient not taking: Reported on 04/09/2023) 90 Tablet 3 No current facility-administered medications for this visit. Review of patient's allergies indicates: Allergen Reactions Ciprofloxacin Nausea/vomiting Morphine And Related nauea Penicillins Hives Sulfa Antibiotics Edema Other Social History Socioeconomic History Marital status: Spouse name: Not on file Number of children: Not on file Years of education: Not on file Highest education level: Not on file Occupational History Not on file Tobacco Use Smoking status: Never Passive exposure: Never Smokeless tobacco: Never Vaping Use Vaping Use: Never used Substance and Sexual Activity Alcohol use: Not Currently Comment: occ Drug use: No Sexual activity: Not Currently Partners: Male control/protection: Surgical Other Topics Concern Service No Blood Transfusions No Caffeine Concern No Occupational Exposure No Hobby Hazards No Sleep Concern No Stress Concern No Weight Concern No Special Diet No Back Care No Exercise Yes Bike Helmet Not Asked Seat Belt Yes Self-Exams Yes Social History Narrative Not on file Social Determinants of Health Financial Resource Strain: Not on file Food Insecurity: No Food Insecurity (05/06/2023) Hunger Vital Sign Worried About Running Out of Food in the Last Year: Never true Ran Out of Food in the Last Year: Never true Transportation Needs: Not on file Physical Activity: Not on file Stress: Not on file Social Connections: Not on file Intimate Partner Violence: Not on file Housing Stability: Not on file Family History Problem Relation Age of Onset Cancer Mother benign breast lesion, breast removed. Hypertension Mother Heart Disorder Father mi Gastro-intestinal disorder Daughter pancreatic enzyme disorder No Past Hx Son Diabetes Aunt (Unspecified) Diabetes Uncle (Unspecified) Eye Problems Other Denies family hx of retinal disease Glaucoma Other Denies family hx Review Of Systems Skin: negative Eyes: negative Ears/Nose/Throat: negative Respiratory: negative Cardiovascular: negative Gastrointestinal: negative Genitourinary: frequency Musculoskeletal: LEFT hip(s) Neurologic: negative Psychiatric: sleep disturbance Hematologic/Lymphatic/Immunologic: negative Endocrine: negative Gynecologic:Patient's last menstrual period was 05/10/2002. Patient is postmenopausal., PHYSICAL EXAMINATION: BP 118/70 | Pulse 80 | Resp 16 | Ht 1.549 m (5' 1") | Wt 54 kg (119 lb) | LMP 05/10/2002 | SpO2 100% | BMI 22.48 kg/m | BSA 1.52 m General appearance - well nourished, comfortable. Skin - no rashes or lesions suspicious for malignancy. Head - without deformity, mass, or tenderness. Eyes - conjuctiva clear, EOMI, nondilated limited fundoscopic exam without obvious pathology. Ears - canals clear, TMs normal. Nose/Sinuses - normal mucosa without mass. Oropharynx -no oral lesions. Neck - normal ROM, supple, without adenopathy, thyromegaly, or bruit. Back - without deformity or tenderness. Lungs - symmetric and full breath sounds without rales, rhonchi, or wheezes. Heart - normal precordial impulse, PMI nondisplaced, normal S1,S2, without murmurs, rubs, or gallops. carotid upstrokes 2/4 without bruit. Breasts - symmetric, no masses or tenderness, axillae negative. Abdomen - nondistended, no organomegaly, nontender to palpation,bowel sounds active. Extremities - no cyanosis, clubbing, or edema. Musculoskeletal - joints without restriction in range of motion or deformity. Peripheral pulses - symmetric and intact. Neuro - normal gait and station, without tremor, symmetric motor strength, DTRs symmetric. Pelvic- deferred ASSESSMENT/PLAN: Well adult exam (Primary) Dyslipidemia, goal LDL below 130 - LIPID PANEL WITH DIRECT LDL IF TG IS HIGH; Future; Expected date: 05/07/2023 Arthritis pain, hip Urinary frequency Other orders - Rizatriptan Benzoate 10 MG Oral Tablet (Maxalt); Take 1 Tablet by mouth as needed for Migraine. - oxyBUTYnin Chloride ER 5 MG Oral Tablet Extended Release 24 Hour (Ditropan XL); Take 1 Tablet by mouth in the morning. Do not cut, crush or chew. Continue current medications. Diet and exercise discussed. documented in this encounter Nursing Notes * India Blake LPN - 05/07/2023 10:12 AM EST The patient has been properly identified by confirmation of name and date of . Chief Complaint Patient presents with Physical-Exam documented in this encounter Plan of Treatment Upcoming Encounters Date Type Department Care Team (Late st Contact Info) Description 08/09/2023 11:00 AM EST Office Visit Allergy/Immunology Matheus Sales [place] [address] [facility] [place] [address] Abeba Auguste PA-C [address] [facility] [place] [address] 09/06/2023 10:30 AM EDT Office Visit Gastroenterology, Tonia Alexander [address] [place] [address] Rebekah Hemphill PA-C [address] [place] [address] 10/16/2023 9:30 AM EDT Telemedicine Nutrition, [facility] [address] [facility] [place] [address] Felipa Rivas, Presley [address] [place] [address] 04/16/2024 1:30 PM EDT Office Visit Dermatology, Tonia Marina [address] [address] [place] [address] Jluiet Alexander PA-C [address] [place] [address] [place] [address] Scheduled Orders Name Type Priority Associated Diagnoses Orde r Schedule LIPID PANEL WITH DIRECT LDL IF TG IS HIGH Lab Routine Dyslipidemia, goal LDL below 130 Expected: 05/07/2023, Expires: 05/07/2024 Scheduled Procedures Name Priority Associated Diagnoses Date/Ti [...] Not on filedocumented as of this encounter Visit Diagnoses Diagnosis Well adult exam- Primary Routine general medical examination at a health care facility Dyslipidemia, goal LDL below 130 Other and unspecified hyperlipidemia Arthritis pain, hip Unspecified arthropathy, pelvic region and thigh Urinary frequency documented in this encounter Care Teams Joy Loading Machine Operator Relationship Specialty Start Date End Date Ro Cannon DO [address] [facility] [place] [address] PCP - General Family Medicine 12/02/16 documented as of this encounter
--- NOTE | 2023-06-06 10:41 | Operative Report ---
PG Post Operative Report Pre & Post Diagnosis Operation Date: 06/06/23 09:00 Pre-Op Diagnosis: Left Hip Degenerative Joint Disease Post-Op Diagnosis: Left Hip Degenerative Joint Disease I identified the patient and participated in the time-out.: Yes Procedure Operation Date: 06/06/23 09:00 Actual Procedures p Left Anterior Total Hip Arthroplasty(Left) - Eddie Espinosa DO Surgeon Eddie Espinosa DO Project Specialist Conrad Elizabeth PA-C Estimated Blood Loss 250 Findings Consistent with Post-Op Diagnosis Specimens Left femoral head Description of Procedure Implants used I used a ZimmerBiomet total hip arthroplasty system with a size 0 standard offset Avenir Complete stem, a 48 mm G7 cup with a 25mm screw, an E1 polyethylen e liner, a 32 mm ceramic head with a 0 neck. Rose arrived at the hospital for the above procedure. She was seen in the preoperative holding area and the operative extremity was identified and signed. She was given a spinal anesthetic, a preoperative antibiotic, and TXA. She was then taken back to the operating room and laid on the table in the supine position. She was given basic sedation. The operative leg was secured to a Puristst leg positioner. The hip was then prepped and draped in sterile fashion. A timeout was done and the patient and the operative extremity was properly identified. An anterior approach was used. Dissection was taken down through the fascia and the tensor muscle belly was retracted laterally and the rectus was retracted medially. The circumflex vessels were identified and ligated. The capsule was then incised and tagged for later repair. The femoral neck was then cut and the femoral head was removed. The acetabulum was exposed. Time was spent doing a complete circumferential labral release. Sequential reaming of the acetabulum up to a size 47 reamer was done. Final reamings were done under fluoroscopy to ensure appropriate version. A Biomet 48 mm G7 cup was then impacted into place. A single 25 mm screw was placed. The E1 polyethylene liner was then snapped into place. Surrounding soft tissues were then injected with 100 cc of an orth opedic pain control cocktail. The proximal femur was then exposed. Sequential broaching up to a size 0 broach was done. Off that broach a size 32 head with a 0 neck was trialed. The hip was reduced and fluoroscopic images showed anatomic alignment of the implants in acceptable length. The broach was removed. The final size 0 standard offset Avenir Complete stem was then impacted into place. A ceramic 32 mm head with a 0 neck was then impacted onto the stem and the hip was reduced. Final fluoroscopic images showed anatomic alignment of the hip. The capsule was then closed with #1 Vicryl suture. A dilute betadyne lavage was then done for 3 minutes. The joint was then irrigated with normal saline solution. The fascia was closed with #1 PDS suture. Skin was closed with 2-0 Vicryl, reta, and a Silverlon dressing. She was then transferred to a hospital bed and taken to the post anesthesia care unit in stable condition. She tolerated the procedure well. Conrad Elizabeth PA-C, was present for the entire procedure. He was critical for patient positioning, prepping, draping, retraction exposure, wound closure and application of sterile dressing. I attest to the content of the Intraoperative Record and any orders documented therein. Any exceptions are noted below.
--- NOTE | 2023-06-06 10:55 | Fluoroscopy Report ---
INTRAOPERATIVE RADIOGRAPH CLINICAL HISTORY: Left hip arthroplasty. Fluoro time: 12 seconds Ka,r: 0.96 mGy FINDINGS: A single spot fluoroscopic view of the left hip is presented. [facility]. A bipolar left hip arthroplasty is in near anatomic alignment. There is no evid ence of acute fracture on this fluoroscopic image. A right hip arthroplasty is partially imaged. IMPRESSION: Intraoperative images from a left hip arthroplasty procedure as above. Electronically signed by: Kendrick Mcdaniel M.D. 06/06/2023 10:54 AM
[2023-06-06] MEDS ORDERED: HYDROmorphone INJ 0.5 MG/0.5 ML SYR IV PRN (10:57)
[2023-06-06] MEDS ORDERED: NALOXONE HCL 0.4 MG/1 ML VIAL/CARP IV PRN (10:57)
[2023-06-06] MEDS ORDERED: bisacodyL 10 MG SUPP PR PRN (10:57)
[2023-06-06] MEDS ORDERED: MAGNESIUM HYDROXIDE SUSP 30 ML UDC PO PRN (10:57)
[2023-06-06] MEDS ORDERED: oxyCODONE HCL IR 5 MG TAB (IMMEDIATE RELEASE) PO PRN (10:57)
[2023-06-06] MEDS ORDERED: METOCLOPRAMIDE HCL INJ 5 MG/ML 2 ML VIAL IV PRN (10:57)
[2023-06-06] MEDS ORDERED: traMADol HCL 50 MG TABLET PO PRN (10:57)
[2023-06-06] MEDS ORDERED: PANTOprazole 40 MG TAB PO PRN (11:54)
[2023-06-06] MEDS ORDERED: RIZATRIPTAN BENZOATE 10 MG TAB PO PRN (11:54)
[2023-06-06] MEDS ORDERED: ARTIFICIAL TEARS OP PRN (12:40)
[2023-06-06] MEDS: KETOROLAC TROMETHAMINE 15 MG/ML VIAL IV SCH ×2 (12:43→18:17)
[2023-06-06] MEDS: SODIUM CHLORIDE 0.9% 1,000 ML IV SCH ×2 (12:44→22:30)
--- NOTE | 2023-06-06 13:37 | Anesthesiology Progress Note ---
Date of Service June 06, 2023 Anesthesia Post Procedure Vital Signs Vital Signs: Temp Pulse Pulse Resp BP Pulse Ox O2 Del Method 06/06/23 13:00 97.7 F 72 16 113/69 95 Room Air 06/06/23 12:30 97.7 F 71 16 124/73 97 Room Air 06/06/23 11:45 97.5 F L 65 13 102/66 95 Room Air 06/06/23 11:35 97.5 F L 63 13 105/65 100 Room Air 06/06/23 11:25 55 L 14 104/76 100 Oxymask 06/06/23 11:15 74 13 116/76 100 Oxymask 06/06/23 11:05 75 13 111/68 100 Oxymask 06/06/23 10:55 97.5 F L 76 12 106/62 96 Oxymask 06/06/23 07:59 97.7 F 75 20 140/83 100 Room Air O2 Flow Rate 06/06/23 13:00 06/06/23 12:30 06/06/23 11:45 06/06/23 11:35 06/06/23 11:25 1 06/06/23 11:15 1 06/06/23 11:05 3 06/06/23 10:55 5 06/06/23 07:59 Pain Intensity Left Hip: Pain Intensity: 0 Transfer of Care Handoff Completed per policy Notes Mental Status: alert / awake / arousable and participated in evaluation Patient Amnestic to Procedure: Yes Nausea / Vomiting: adequately controlled Pain: adequately controlled Airway Patency, RR, SpO2: stable & adequate BP & HR: stable & adequate Hydration State: stable & adequate Neuraxial Anesthesia: was administered and sensory block is resolving Anesthetic Complications: no major complications apparent and Pt Satisfied with anesthetic care
[2023-06-06] MEDS: ACETAMINOPHEN 500 MG TAB PO SCH (15:39)
[2023-06-06] MEDS: ceFAZolin 2000MG 2,000 MG/15 ML SYR IV SCH (16:38)
[2023-06-06] MEDS: DOCUSATE SODIUM 100 MG CAP PO SCH (20:36)
[2023-06-06] MEDS: ASPIRIN 81 MG ECTAB PO SCH (20:36)
[2023-06-06] MEDS ORDERED: SENNA 8.6 MG TAB PO SCH (21:00)
[2023-06-07] MEDS: ceFAZolin 2000MG 2,000 MG/15 ML SYR IV SCH (00:25)
[2023-06-07] MEDS: ACETAMINOPHEN 500 MG TAB PO SCH ×2 (00:25→09:14)
[2023-06-07] MEDS: KETOROLAC TROMETHAMINE 15 MG/ML VIAL IV SCH ×2 (00:26→06:14)
[2023-06-07] MEDS ORDERED: dexAMETHasone 4 MG TAB PO SCH (08:00)
[2023-06-07] MEDS ORDERED: MULTIVITAMIN TAB PO SCH (09:00)
[2023-06-07] MEDS: ASPIRIN 81 MG ECTAB PO SCH (09:14)
[2023-06-07] MEDS: DOCUSATE SODIUM 100 MG CAP PO SCH (09:14)
--- NOTE | 2023-06-07 09:45 | Orthopedic Progress Note ---
Date of Service June 07, 2023 Assessment & Plan (1) Status post left hip replacement: Overall, she is doing quite well today with good pain control to the left hip. She will work with physical therapy today to work on ambulation and range of motion exercises. She is on aspirin for DVT prophylaxis. She can be discharged later today. She will follow-up with orthopedics in 2 weeks for postoperative care. Subjective . Rose was seen and evaluated at bedside today resting comfortably in no apparent distress. She states that her pain is well-controlled to her left hip. She has been ambulating to the bathroom. She denies any other concerns at this time. Review of Systems All systems reviewed & are unremarkable except as noted in HPI & below. Physical Exam . On physical examination of the left hip, dressing is in place, clean, dry, and intact. Her leg is out in full extension. She has active plantarflexion dorsiflexion to the left ankle. +2 DP and PT pulses. Less than 2-second capillary refill. Normal sensation. Neurovascular intact. Results & Data Results & Data Laboratory Results . Diagnostic Findings . Postoperative x-rays of the left hip show prosthesis to be in anatomical alignment with no signs of fracture complication or loosening. PG Care Time/CCT Total # of Minutes Spent Total Time Spent with Patient: Total time spent is greater than 50% in coordination of care (as documented) at patient's floor/unit and/or counseling patient: Coding Level of Care Code 21707 Post Operative Follow-Up Diagnoses Status post left hip replacement Z96.642
--- NOTE | 2023-06-07 09:47 | Discharge Summary ---
Date of Service June 07, 2023 Admission HPI (Per Admitting) Rose is a pleasant 72-year-old female who has been dealing with chronic increasing left hip and groin pain. She has a history of a right hip replacement done in the past and has done well with that. Unfortunately, she is really struggling with her left hip. She has been seeing some of my partners. X-rays do show some arthritis. She then had an MRI, which showed advanced osteoarthritis of her left hip. She is having trouble ambulating. She is having trouble walking long distances especially at work. After failing conservative treatment, she has elected to proceed with a left anterior total arthroplasty. Admission Exam (Per Admitting) On physical examination of left hip, she has slightly decreased range of motion. She has pain with forced internal and external rotation. Most of her pain is located in her groin.. Principal Diagnosis Same as "Discharge Diagnosis" noted below under Discharge Instructions. Discharge Exam . On physical examination of the left hip, dressing is in place, clean, dry, and intact. Her leg is out in full extension. She has active plantarflexion dorsiflexion to the left ankle. +2 DP and PT pulses. Less than 2-second capillary refill. Normal sensation. Neurovascular intact. Discharge Data Procedures Performed Operation Date: 06/06/23 09:00 Actual Procedures p Left Anterior Total Hip Arthroplasty(Left) - Eddie Espinosa DO Ordered Studies 06/06/23 09:00 FL hip LT 1V Routine Hospital Course (1) Status post left hip replacement: On June 06, 2023 Rose arrived at [facility] and underwent a left total hip arthroplasty without complications. She had a spinal anesthetic. Postoperatively, she was started on aspirin for DVT prophylaxis and transferred to the general orthopedic floor in stable condition. Her hospital course was uneventful. On postoperative day #1, her vital signs are stable and her pain was well-controlled. She participated well with physical therapy working on ambulation and range of motion exercises. She was then discharged home in stable condition. She will follow-up with orthopedics in 2 weeks for postoperative care. PG Care Time/CCT Total # of Minutes Spent Total Time Spent with Patient: Total time spent is greater than 50% in coordination of care (as documented) at patient's floor/unit and/or counseling patient: Discharge Plan Discharge Items Patient Disposition: Home - Home Health Services Reason For Visit: Left Hip Degenerative Joint Disease Discharge Diagnosis: Same Activity: Per Instructions section Non-emergency contact: Surgeon Call non-emergency contact if: your temperature is above 101.5, your wound has increased redness and your wound has increased drainage Follow-up/Referrals: Kina Mcneill PA-C [Primary Care Provider] - Diet: Regular Addtl Attending Provider Instructions: Activity and Therapy Recommendations: * If you are using [facility] then therapy will be provided at your home until they feel you have accomplished all of your goals. * If you are using [facility] then Physical Therapy will be provided until they feel you are ready to start Outpatient Physical Therapy. * If you are not using home therapy then Outpatient Physical Therapy should start about 3-5 days from your day of surgery. Therapy will last about 6-10 weeks * You were shown a series of exercises in the hospital. Do these exercises three times each day including the exercises you were shown in physical therapy. * Get up and walk several times each day.~ For the first four weeks, try not to stand or walk for more than one hour at a time. If you do stand or walk for more than one hour, you will not hurt anything, but your leg will likely swell.~~ * As you feel comfortable, you may change from the walker or crutches to a cane and~then to independent walking. Medications: * Narcotic You will likely be sent home from the hospital with a prescription for the narcotic pain medication that worked best throughout your stay. * Cefadroxil -take the antibiotic twice a day for 10 days to help prevent infection. * Aspirin Most patients will be required to take Aspirin 81mg twice a day for 6 weeks after surgery. This is obtained [id number] and a prescription is not necessary. * Other medications may be prescribed for specific circumstances. If you have any questions, please call the office at . * Resume previous home medications unless otherwise instructed TEDs/Elastic Stockings: The white elastic stockings help limit swelling and prevent blood clots from forming in your legs. The more you wear them, the more they work. Wear them for six weeks. Dressing Care: Leave the Silverlon dressing in place for 7 days. After 7 days you may remove the dressing. If the incision is not draining then you may leave the reta open to air. If there is a little bit of drainage or if the reta are getting stuck on your clothing then cover the incision with a dry dressing. The reta will be removed at your 2 week follow-up appointment. Showering: You may shower with the Silverlon dressing in place. Do not let the shower spray hit the dressing directly. Pat the Silverlon dressing dry. If the dressing becomes wet underneath, then simply remove the dressing. Keep the incision dry until you are 7 days out from the day of surgery. After 7 days you may remove the Silverlon dressing and shower with the reta exposed. Let soapy water run over the reta and pat them dry. Do not scrub or soak the incision. Things To Watch For: * Drainage from the incision site that occurs more than one week after your surgery. * Increased redness at the incision site. * Fever above 102 degrees Fahrenheit. * Unusual chest pain or shortness of breath. * Call [facility] at with any of the above problems Follow-Up Visit: Follow-up with Dr. Espinosa's PA (Eddie Alfaro) 2-3 weeks after your day of surgery. He will remove your reta and answer any questions. If you have any additional questions or concerns, Dr Espinosa is usually in the office at the same time and will be available An appointment was probably scheduled when you signed-up for surgery in the office. If you have any questions call Office Instructions: More detailed instructions as well as Frequently Asked Questions were provided in a folder by our office when you signed-up for surgery. Please review these instructions when you get home. If you have any further questions or concerns, please feel free to call the office at [phone] Pending Studies at Discharge: No Stand-Alone Forms: My [facility] [employer], Smoking Cessation Medications and DC Order Prescriptions: New aspirin 81 mg Tablet,Delayed Release (Dr/Ec) 81 mg PO BID 42 Days Qty: 0 0RF tramadol 50 mg Tablet 50 - 100 mg PO Q6 PRN (Reason: pain) Qty: 30 0RF cefadroxil 500 mg capsule 500 mg PO BID 10 Days Qty: 20 0RF Continued rizatriptan [Maxalt] 10 mg Tablet 1 tab PO UD PRN (Reason: Migraine Headache) Systane (propylene glycol) 0.4-0.3 % Drops 1 drp OPHTHALMIC (EYE) BID PRN (Reason: Dry Eye(S)) pantoprazole [Protonix] 20 mg Tablet,Delayed Release (Dr/Ec) 20 mg PO DAILY PRN (Reason: Acid Reflux) Herbal Powder 1 tsp PO DAILY Discontinued clindamycin HCl 300 mg capsule 300 mg PO ONCE PRN (Reason: prophylaxis) Qty: 2 3RF Rx Instructions: Take 2 capsules 1 hour prior to dental procedure ibuprofen 200 mg Tablet 200 - 600 mg PO QID PRN (Reason: Pain) Admission Data Admit Date/Time: 06/06/23 10:57 Attending Provider: Eddie Espinosa Admit Provider: Eddie Espinosa Primary Care Provider: Kina Mcneill
== END 2023-06-07 11:04 | disposition home health service (06) ==
LOC: ASU 07:17 → 3N 07:17